=== PATIENT | female | born 1985 | race African-American/Black ===

== ENCOUNTER 2018-09-20 19:31 | Emergency (ER) | payer BC ==
[2018-09-20] MEDS ORDERED: IBUPROFEN 400 MG TAB ONE (19:59)
[2018-09-20] MEDS ORDERED: IBUPROFEN 200 MG TAB PO ONE (20:00)
[2018-09-20] MEDS ORDERED: ONDANSETRON 4 MG (ODT) TAB ONE (20:09)
--- NOTE | 2018-09-20 20:29 | ER ---
Nurse's Notes [facility] Name: Taina Macias Age: 33 yrs Sex: Female : 1985 Arrival Date: 09/20/2018 Time: 19:36 Bed 11 Private MD: Diagnosis: Migraine without aura, not intractable, without status migrainosus Presentation: 09/20 19:36 Presenting complaint: Patient states: headache since Thursday after dental work on ak1 Thursday. pt c/o pain at temples. pt had tylenol at 1030. Transition of care: patient was not received from another setting of care. Onset of symptoms was September 18, 2018. Risk Assessment: Do you want to hurt yourself or someone else? Patient reports no desire to harm self or others. Initial Sepsis Screen: Does the patient meet any 2 criteria? No. Patient's initial sepsis screen is negative. Does the patient have a suspected source of infection? No. Patient's initial sepsis screen is negative. Care prior to arrival: None. 19:36 Method Of Arrival: Ambulatory ak 19:36 Acuity: AARON 4 ak1 Triage Assessment: 19:38 General: Appears in no apparent distress. Behavior is calm, cooperative. 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 - Social history:: Smoking status: unknown. - Ebola Screening: : No symptoms or risks identified at this time. Screenin:47 Abuse screen: Denies threats or abuse. Denies injuries from another. Nutritional aj screening: No deficits noted. Tuberculosis screening: No symptoms or risk factors identified. Fall Risk None identified. Assessment: 19:47 General: Appears in no apparent distress. comfortable, Behavior is calm, cooperative, aj appropriate for age. Pain: Complains of pain in face and scalp. Neuro: Level of Consciousness is awake, alert, obeys commands, Oriented to person, place, time, situation, Appropriate for age. Neuro: Reports headache in entire. Respiratory: Airway is patent Respiratory effort is even, unlabored, Respiratory pattern is regular, symmetrical. Derm: Skin is intact, is healthy with good turgor, Skin is pink, warm \T\ dry. normal. 20:25 Reassessment: Patient appears in no apparent distress at this time. No changes from aj previously documented assessment. Patient and/or family updated on plan of care and expected duration. Pain level reassessed. Patient is alert, oriented x 3, equal unlabored respirations, skin warm/dry/pink. Patient states feeling better. Patient states symptoms have improved. Vital Signs: 19:38 BP 124 / 79; Pulse 78; Resp 16; Temp 99.1; Pulse Ox 100% on R/A; Weight 97.52 kg (R); ak1 Height 5 ft. 5 in. (165.10 cm) (R); Pain 8/10; 19:38 Body Mass Index 35.78 (97.52 kg, 165.10 cm) ak1 [place] Coma Score: 20:30 Eye Response: spontaneous(4). Verbal Response: oriented(5). Motor Response: obeys tw4 commands(6). Total: 15. ED Course: 19:36 Patient arrived in ED. ak1 19:38 Triage completed. ak1 19:38 Arm band placed on Patient placed in an exam room, on a stretcher, Patient notified of ak1 wait time. 19:41 Aliyah Hernadez, RN is Primary Nurse. aj 19:44 Rudi Tuttle MD is Attending Physician. tw4 19:47 Patient has correct armband on for positive identification. aj 20:33 No provider procedures requiring assistance completed. Patient did not have IV access aj during this emergency room visit. Administered Medications: 19:51 Drug: Ibuprofen 600 mg Route: PO; aj 20:25 Follow up: Response: Pain is decreased aj 19:59 Drug: Zofran 4 mg Route: PO; aj 20:25 Follow up: Response: Nausea is decreased aj Outcome: 20:28 Discharge ordered by . tw4 20:33 Discharged to home ambulatory, with family. aj 20:33 Condition: good 20:33 Discharge instructions given to patient, family, Instructed on discharge instructions, follow up and referral plans. medication usage, Demonstrated understanding of instructions, follow-up care, medications, Prescriptions given X 2. 20:33 Patient left the ED. aj Signatures: Aliyah Hernadez, RN RN Bonnie Umana RN RN ak1 Rudi Tuttle, MD SKAGGS tw4
--- NOTE | 2018-09-20 20:29 | EDPHYS ---
Physician Documentation [facility] Name: Taina Macias Age: 33 yrs Sex: Female : 1985 Arrival Date: 09/20/2018 Time: 19:36 Bed 11 Private MD: ED Physician Rudi Tuttle HPI: 09/20 20:30 This 33 yrs old Black Female presents to ER via Ambulatory with complaints of Headache. tw4 20:30 The patient complains of pain to the forehead. The patient describes the headache as a tw4 pressure. Onset: The symptoms/episode began/occurred 3 day(s) ago. Associated signs and symptoms: The patient has no apparent associated signs or symptoms. Severity of symptoms: At its worst the pain was mild, in the emergency department the pain is unchanged. Headache History: Denies prior headaches. The symptoms are alleviated by nothing. the symptoms are aggravated by nothing. The patient has not experienced similar symptoms in the past. 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 - Social history:: Smoking status: unknown. - Ebola Screening: : No symptoms or risks identified at this time. ROS: 20:30 Constitutional: Negative for fever, chills, and weight loss, Cardiovascular: Negative tw4 for chest pain, palpitations, and edema, Respiratory: Negative for shortness of breath, cough, wheezing, and pleuritic chest pain, Abdomen/GI: Negative for abdominal pain, nausea, vomiting, diarrhea, and constipation, Back: Negative for injury and pain, MS/Extremity: Negative for injury and deformity. 20:30 Neuro: Positive for headache, Negative for altered mental status, dizziness, gait disturbance, numbness, seizure activity, speech changes, syncope, near syncope, tingling, tinnitus, tremor, visual changes. Exam: 20:30 Constitutional: This is a well developed, well nourished patient who is awake, alert, tw4 and in no acute distress. Head/Face: Normocephalic, atraumatic. Chest/axilla: Normal chest wall appearance and motion. Nontender with no deformity. No lesions are appreciated. Cardiovascular: Regular rate and rhythm with a normal S1 and S2. No gallops, murmurs, or rubs. Normal PMI, no JVD. No pulse deficits. Respiratory: Lungs have equal breath sounds bilaterally, clear to auscultation and percussion. No rales, rhonchi or wheezes noted. No increased work of breathing, no retractions or nasal flaring. Abdomen/GI: Soft, non-tender, with normal bowel sounds. No distension or tympany. No guarding or rebound. No evidence of tenderness throughout. Skin: Warm, dry with normal turgor. Normal color with no rashes, no lesions, and no evidence of cellulitis. MS/ Extremity: Pulses equal, no cyanosis. Neurovascular intact. Full, normal range of motion. Neuro: Awake and alert, GCS 15, oriented to person, place, time, and situation. Cranial nerves II-XII grossly intact. Motor strength 5/5 in all extremities. Sensory grossly intact. Cerebellar exam normal. Normal gait. Vital Signs: 19:38 BP 124 / 79; Pulse 78; Resp 16; Temp 99.1; Pulse Ox 100% on R/A; Weight 97.52 kg (R); ak1 Height 5 ft. 5 in. (165.10 cm) (R); Pain 8/10; 19:38 Body Mass Index 35.78 (97.52 kg, 165.10 cm) ak1 [place] Coma Score: 20:30 Eye Response: spontaneous(4). Verbal Response: oriented(5). Motor Response: obeys tw4 commands(6). Total: 15. MDM: 19:44 Patient medically screened. tw4 20:30 Data reviewed: vital signs, nurses notes. Counseling: I had a detailed discussion with tw4 the patient and/or guardian regarding: the historical points, exam findings, and any diagnostic results supporting the discharge/admit diagnosis. Medication response: Zofran markedly relieved the patient's nausea. Response to treatment: the patient's symptoms have markedly improved after treatment, and as a result, I will discharge patient. Special discussion: I discussed with the patient/guardian in detail that at this point there is no indication for admission to the hospital. It is understood, however, that if the symptoms persist or worsen the patient needs to return immediately for re-evaluation. Administered Medications: 19:51 Drug: Ibuprofen 600 mg Route: PO; aj 20:25 Follow up: Response: Pain is decreased aj 19:59 Drug: Zofran 4 mg Route: PO; aj 20:25 Follow up: Response: Nausea is decreased aj Disposition: 09/20/18 20:28 Discharged to Home. Impression: Migraine without aura, not intractable, without status migrainosus. - Condition is Stable. - Discharge Instructions: Migraine Headache, Migraine Headache, [id number]. - Prescriptions for Fioricet 50- 325-40 mg Oral tablet - take 1 tablet by ORAL route every 4 hours as needed not to exceed 6 tablets per 24hrs; 20 tablet. Zofran 4 mg Oral Tablet - take 1 tablet by ORAL route every 12 hours As needed; 6 tablet. - Work release form, Medication Reconciliation Form, Thank You Letter, Antibiotic Education, Prescription Opioid Use form. - Follow up: Private Physician; When: Upon discharge from the Emergency Department; Reason: If symptoms return, Recheck today's complaints, Continuance of care. - Problem is new. - Symptoms have improved. Signatures: Aliyah Hernadez, RN RN Bonnie Umana RN RN ak1 Rudi Tuttle MD MD tw4 Corrections: (The following items were deleted from the chart) 20:33 20:28 09/20/2018 20:28 Discharged to Home. Impression: Migraine without aura, not aj intractable, without status migrainosus. Condition is Stable. Forms are Medication Reconciliation Form, Thank You Letter, Antibiotic Education, Prescription Opioid Use. Follow up: Private Physician; When: Upon discharge from the Emergency Department; Reason: If symptoms return, Recheck today's complaints, Continuance of care. Problem is new. Symptoms have improved. tw4
[2018-09-21 02:13] VITALS: BP 124/79; TEMP 99.1; O2SAT 100
== END 2018-09-20 20:33 | disposition home or self-care (01) ==
LOC: ER 19:31
DX: G43.009 Migraine without aura, not intractable, without status migrainosus (principal)
CPT/HCPCS: 99283

== ENCOUNTER 2019-01-01 09:06 | Emergency (ER) | payer BC ==
--- OUTSIDE RECORDS SUMMARY | 2019-01-01 09:09 | XMS REPORT | Clinical Summary ---
:1985 Author Organization [facility] Address [address] [place] [address] Care Team Providers Name Role Phone Asked, No Pcp Primary Care Provider Unavailable Allergies No Known Allergies Medications Medication Sig Dispensed Refills Start Date End Date Status medroxyPROGESTERone 150 INJECT 1 0 09/07/2018 Active mg/mL syringe MILLILITER (150 MG) BY INTRAMUSCULAR ROUTE EVERY 3 MONTHS diclofenac (VOLTAREN) 50 Take 1 tab as 90 tablet 0 10/15/2018 Active MG EC tablet needed for severe migraine. December repeat x 1 amitriptyline (ELAVIL) Take 1 tablet (10 30 tablet 3 10/15/2018 10/15/19 Active 10 MG tablet mg total) by mouth 20 nightly. Active Problems No known active problems Encounters Date Type Specialty Care Team Description 10/18/2018 Orders Only Neurology Rob Carl MD 10/15/2018 Office Visit Neurology Rob Carl MD Neck pain (Primary Dx); Acute nonintractable headache, unspecified headache type; Tension headache 10/15/2018 Orders Only Neurology Rob Carl MD after 12/31/2017 Family History Medical History Relation Name Comments Hypertension Father Breast cancer Maternal Grandmother Diabetes Mother Heart attack Mother Hypertension Mother Migraines Mother Colon cancer Paternal Grandmother Relation Name Status Comments Father Maternal Grandmother Mother Paternal Grandmother Social History Tobacco Use Types Packs/Day Years Used Date Never Smoker Smokeless Tobacco: Never Used Alcohol Use Drinks/Week oz/Week Comments Yes Sex Assigned at Date Recorded Not on file Job Start Date Occupation Industry Not on file Not on file Not on file Travel History Travel Start Travel End No recent travel history available. Last Filed Vital Signs Vital Sign Reading Time Taken Blood Pressure 110/70 10/15/2018 11:30 AM LOKIE ENGINEER Pulse 68 10/15/2018 11:30 AM LOKIE ENGINEER Temperature - - Respiratory Rate 14 10/15/2018 11:30 AM LOKIE ENGINEER Oxygen Saturation - - Inhaled Oxygen Concentration - - Weight 97.5 kg (215 lb) 10/15/2018 11:30 AM LOKIE ENGINEER Height - - Body Mass Index - - Plan of Treatment Date Type Specialty Care Team Description 01/12/2019 [place] [id number] [address] Health Maintenance Due Date Last Done Comments CERVICAL CANCER SCREENING 2006 INFLUENZA VACCINE 03/24/2019 Procedures Procedure Name Priority Date/Time Associated Comments Diagnosis RPR SCREEN Routine 10/18/2018 3:01 Results for this PM LOKIE ENGINEER procedure are in the results section. VITAMIN B12 LEVEL Routine 10/18/2018 3:01 Results for this PM LOKIE ENGINEER procedure are in the results section. THYROID STIMULATING Routine 10/18/2018 3:01 Results for this HORMONE PM LOKIE ENGINEER procedure are in the results section. FOLATE LEVEL Routine 10/18/2018 3:01 Results for this PM LOKIE ENGINEER procedure are in the results section. DNA AB SCREEN Routine 10/18/2018 3:01 Results for this PM LOKIE ENGINEER procedure are in the results section. TAVARES SCREEN W IFA W Routine 10/18/2018 3:01 Results for this REFLEX TO TITER PM LOKIE ENGINEER procedure are in the results section. SEDIMENTATION RATE Routine 10/18/2018 3:01 Results for this PM LOKIE ENGINEER procedure are in the results section. VITAMIN B12 LEVEL Routine 10/15/2018 12:33 Results for this PM LOKIE ENGINEER procedure are in the results section. FOLATE LEVEL Routine 10/15/2018 12:33 Results for this PM LOKIE ENGINEER procedure are in the results section. after 12/31/2017 Results TAVARES SCREEN W IFA W REFLEX TO TITER (10/18/2018 3:01 PM LOKIE ENGINEER) TAVARES screen NEGATIVE NEGATIVE [facility] Comment: TAVARES IFA is a first line screen for detecting the presence of up to approximately 150 autoantibodies in various autoimmune diseases. A negative TAVARES IFA result suggests TAVARES-associated autoimmune diseases are not present at this time. Visit Physician FAQs for interpretation of all antibodies in the [place], prevalence, and association with diseases at http://education.[employer].the Shelf/ faq/YOG755 Narrative Performed At FASTING: UNKNOWN [facility] Resulting Agency Comment Performing Organization Information: Site ID: [id number] Name: [facility] Address: [address] [place] [phone] Director: Dr. Ramses Perez Performing Organization Address [facility] Cent[facility] Phone Number [facility] [address] DNA Ab screen (10/18/2018 3:01 PM LOKIE ENGINEER) DNA ds antibody <1 IU/mL [facility] Comment: IU/mL Interpretation < or=4Negative 5-9 Indeterminate > or=10 Positive Narrative Performed At FASTING: UNKNOWN [facility] Comment Performing Organization Information: Site ID: [id number] Name: [facility] Address: [address] [place] [phone] Director: Dr. Ramses Perez Performing Organization Address [facility] Phone Number [facility] [address] RPR screen (10/18/2018 3:01 PM LOKIE ENGINEER) RPR (monitor) w/refl NON-REACTIVE NON-REACTIVE [facility] [place] titer Comment: NO COLLECTION DATE RECEIVED. WE HAVE USED THE DATE THE SPECIMEN WAS RECEIVED BY THIS LABORATORY THE COLLECTION DATE. IF THIS IS INCORRECT, PLEASE CONTACT CLIENT SERVICES. PHONE NUMBER: [phone] Narrative Performed At FASTING: UNKNOWN [facility]ing [facility] Comment Performing Organization Information: Site ID: [id number] Name: [facility] Address: [address] [place] [phone] Director: Jen Gil Performing Organization Address [facility] Phone Number [facility] [address] [address] Sedimentation rate (10/18/2018 3:01 PM LOKIE ENGINEER) Sedimentation rate 2 < OR=20 mm/h [facility] [place] Narrative Performed At FASTING: UNKNOWN [facility] Comment Performing Organization Information: Site ID: [id number] Name: [facility] Address: [address] [place] [phone] Director: Jen Gil Performing Organization Address [facility] Phone Number [facility] [address] [phone] Thyroid stimulating hormone (10/18/2018 3:01 PM LOKIE ENGINEER) TSH 1.26 mIU/L [facility] [place] Comment: Reference Range > or=20 Years0.40-4.50 Ranges First trimester0.26-2.66 Second trimester 0.55-2.73 Third trimester0.43-2.91 Narrative Performed At FASTING: UNKNOWN [facility] Resulting [facility] Comment Performing Organization Information: Site ID: RGA Name: [facility] Address: [address] [place] [phone] Director: Jen Gil Performing Organization Address City/[facility] Centercode Phone Number [facility] [address] [address] Folate level (10/18/2018 3:01 PM LOKIE ENGINEER)Only the most recent of2 resultswithin the time period is included. Folate >24.0 ng/mL [facility] [place] Comment: Reference Range Low: <3.4 Borderline:3.4- 5.4 Normal:> 5.4 Narrative Performed At FASTING: UNKNOWN [facility] Comment Performing Organization Information: Site ID: [id number] Name: [facility] Address: [address] [place] [phone] Director: Jen Gil Performing Organization Address [facility] [place] [address] Vitamin B12 level (10/18/2018 3:01 PM LOKIE ENGINEER)Only the most recent of2 resultswithin the time period is included. Vitamin B12 537 200 - 1,100 pg/mL [facility] [place] Narrative Performed At FASTING: UNKNOWN [facility] Comment Performing Organization Information: Site ID: [id number] Name: [facility] Address: [address] [place] [phone] Director: Jen Gil Performing Organization Address City/State/[facility] Cent[facility]ode Phone Number [facility] [address] [phone] after 12/31/2017 Insurance Payer Benefit Plan / Group Subscriber ID Type Phone Address BCBS BCBS CHOICE PPO/FEDERAL EMPL PPO xxxxxxxxxxxx PPO Advance Directives Patient has advance care planning documents on file. For more information, please contact:Julian Butler[address] [place] [address]
[2019-01-01] MEDS ORDERED: KETOROLAC 30 MG/ML INJ ONE (09:41)
[2019-01-01] MEDS ORDERED: CYCLOBENZAPRINE 10 MG TAB ONE (09:41)
[2019-01-01] MEDS ORDERED: METHYLPREDNISOLONE 125 MG INJ ONE (09:41)
--- NOTE | 2019-01-01 11:24 | ER ---
Nurse's Notes [facility] Name: Taina Macias Age: 33 yrs Sex: Female : 1985 Arrival Date: 01/01/2019 Time: 09:08 Bed 13 Private MD: Unknown, Unknown Diagnosis: Muscle spasm of back Presentation: 01/01 09:15 Presenting complaint: Patient states: Since Thursday, I thought it was a crick in my tw2 neck, but it has been catching muscles spasms, I took Ibuprofen and Advil and nothing has helped, and every position hurts. Transition of care: patient was not received from another setting of care. Onset of symptoms was January 01, 2019. Risk Assessment: Do you want to hurt yourself or someone else? Patient reports no desire to harm self or others. Initial Sepsis Screen: Does the patient meet any 2 criteria? No. Patient's initial sepsis screen is negative. Does the patient have a suspected source of infection? No. Patient's initial sepsis screen is negative. Care prior to arrival: None. 09:15 Method Of Arrival: Ambulatory tw2 09:15 Acuity: AARON 4 tw2 Triage Assessment: 09:17 General: Appears in no apparent distress. well groomed, Behavior is calm, cooperative, tw2 appropriate for age. Pain: Complains of pain in Right shoulder, upper right back. 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 - Social history:: Smoking status: Patient/guardian denies using tobacco. - Ebola Screening: : Patient denies travel to an Ebola-affected area in the 21 days before illness onset. Screenin:20 Abuse screen: Denies threats or abuse. Nutritional screening: No deficits noted. tw2 Tuberculosis screening: No symptoms or risk factors identified. Fall Risk None identified. Assessment: 09:20 General: Appears in no apparent distress. well groomed, Behavior is calm, cooperative, tw2 appropriate for age. Pain: Complains of pain in right shoulder. Neuro: Level of Consciousness is awake, alert, obeys commands, Oriented to person, place, time, situation. Cardiovascular: Patient's skin is warm and dry. Respiratory: Airway is patent Respiratory effort is even, unlabored, Respiratory pattern is regular, symmetrical, Breath sounds are clear bilaterally. GI: No signs and/or symptoms were reported involving the gastrointestinal system. : No signs and/or symptoms were reported regarding the genitourinary system. EENT: No signs and/or symptoms were reported regarding the EENT system. Derm: No signs and/or symptoms reported regarding the dermatologic system. Musculoskeletal: Circulation, motion, and sensation intact. Reports pain in right shoulder, upper right back. 09:22 Reassessment: provider at bedside at this time. tw2 10:37 Reassessment: Patient appears in no apparent distress at this time. Patient and/or tw2 family updated on plan of care and expected duration. Pain level reassessed. Patient is alert, oriented x 3, equal unlabored respirations, skin warm/dry/pink. 11:38 Reassessment: Patient appears in no apparent distress at this time. Patient and/or tw2 family updated on plan of care and expected duration. Pain level reassessed. Patient is alert, oriented x 3, equal unlabored respirations, skin warm/dry/pink. Patient states feeling better. Vital Signs: 09:17 BP 147 / 73; Pulse 91; Resp 18; Temp 98(TE); Pulse Ox 99% on R/A; Weight 96.16 kg (R); tw2 Height 5 ft. 6 in. (167.64 cm) (R); Pain 8/10; 10:38 BP 118 / 70; Pulse 86; Resp 18; Pulse Ox 100% ; Pain 7/10; tw2 10:38 Pain 7/10; tw2 11:39 BP 115 / 53; Pulse 82; Resp 17; Pulse Ox 99% on R/A; Pain 7/10; tw2 09:17 Body Mass Index 34.22 (96.16 kg, 167.64 cm) tw2 ED Course: 09:08 Patient arrived in ED. ag5 09:09 Unknown, Unknown is Private Physician. ag5 09:09 [facility]agandeep Krause [facility] pm1 09:09 Lazaro Rosario MD is Attending Physician. pm1 09:09 Bed in low position. Call light in reach. Pulse ox on. NIBP on. tw2 09:15 Jordana Naylor, RN is Primary Nurse. tw2 09:17 Triage completed. tw2 09:17 Arm band placed on. tw2 11:39 No provider procedures requiring assistance completed. Patient did not have IV access tw2 during this emergency room visit. Administered Medications: 09:33 Drug: Flexeril 10 mg Route: PO; tw2 10:37 Follow up: Response: No adverse reaction; No adverse reaction, pt reports no muscle tw2 spasms 09:35 Drug: TORadol 60 mg Route: IM; Site: right gluteus; tw2 10:38 Follow up: Pain /10 Adult; Response: No adverse reaction; Pain is decreased tw2 09:36 Drug: SOLU-Medrol 125 mg Route: IM; Site: left gluteus; tw2 10:37 Follow up: Response: No adverse reaction tw2 Outcome: 11:23 Discharge ordered by . pm1 11:39 Discharged to home ambulatory. tw2 11:39 Condition: stable 11:39 Discharge instructions given to patient, Instructed on discharge instructions, follow up and referral plans. no drinking with medication, no driving heavy equipment, medication usage, Demonstrated understanding of instructions, follow-up care, medications, Prescriptions given X 3. 11:40 Patient left the ED. tw2 Signatures: Gagandeep Krause, SUPERVISOR CEREAL SUPERVISOR CEREAL pm1 Jordana Naylor, RN RN tw2 Oral Pérez ag5
--- NOTE | 2019-01-01 11:24 | EDPHYS ---
Physician Documentation [facility] Name: Taina Macias Age: 33 yrs Sex: Female : 1985 Arrival Date: 01/01/2019 Time: 09:08 Bed 13 Private MD: Unknown, Unknown ED Physician Lazaro Rosario HPI: 01/01 09:54 This 33 yrs old Black Female presents to ER via Ambulatory with complaints of Right pm1 neck and back pain. 09:54 The patient or guardian complains of pain, that is acute. Posterior right neck and back.pm1 09:54 Context: The problem was sustained at home, resulted from an unknown reason, possibly pm1 sleeping wrong position, The patient reports no decreased range of motion. The patient reports no obvious deformity. Onset: The symptoms/episode began/occurred 3 day(s) ago. Modifying factors: the symptoms are alleviated by remaining still, The symptoms are aggravated by movement. Associated signs and symptoms: Pertinent negatives: chest pain, Numbness in right arm, left arm, right leg and left leg shortness of breath, tingling, Weakness in right arm, left arm, right leg and left leg. Severity of symptoms: in the emergency department the symptoms are actually worse. Treatment prior to arrival includes: over the counter medications, NSAIDS. The patient has not experienced similar symptoms in the past. The patient has not recently seen a physician. 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 - Social history:: Smoking status: Patient/guardian denies using tobacco. - Ebola Screening: : Patient denies travel to an Ebola-affected area in the 21 days before illness onset. ROS: 09:54 Constitutional: Negative for fever, chills, and weight loss, Eyes: Negative for injury, pm1 pain, redness, and discharge, ENT: Negative for injury, pain, and discharge. 09:54 Cardiovascular: Negative for chest pain, palpitations, and edema, Respiratory: Negative for shortness of breath, cough, wheezing, and pleuritic chest pain, Abdomen/GI: Negative for abdominal pain, nausea, vomiting, diarrhea, and constipation. 09:54 : Negative for injury, bleeding, discharge, and swelling, MS/Extremity: Negative for injury and deformity, Skin: Negative for injury, rash, and discoloration, Neuro: Negative for headache, weakness, numbness, tingling, and seizure. 09:54 Neck: Positive for pain with movement, tenderness, of the right trapezius. 09:54 Back: Positive for pain with movement, of the mid left back area along trapezius. Exam: 09:54 Constitutional: This is a well developed, well nourished patient who is awake, alert, pm1 and in no acute distress. Head/Face: Normocephalic, atraumatic. Eyes: Pupils equal round and reactive to light, extra-ocular motions intact. Lids and lashes normal. Conjunctiva and sclera are non-icteric and not injected. Cornea within normal limits. Periorbital areas with no swelling, redness, or edema. ENT: Nares patent. No nasal discharge, no septal abnormalities noted. Tympanic membranes are normal and external auditory canals are clear. Oropharynx with no redness, swelling, or masses, exudates, or evidence of obstruction, uvula midline. Mucous membranes moist. 09:54 Chest/axilla: Normal chest wall appearance and motion. Nontender with no deformity. No lesions are appreciated. Cardiovascular: Regular rate and rhythm with a normal S1 and S2. No gallops, murmurs, or rubs. Normal PMI, no JVD. No pulse deficits. Respiratory: Lungs have equal breath sounds bilaterally, clear to auscultation and percussion. No rales, rhonchi or wheezes noted. No increased work of breathing, no retractions or nasal flaring. Abdomen/GI: Soft, non-tender, with normal bowel sounds. No distension or tympany. No guarding or rebound. No evidence of tenderness throughout. 09:54 Skin: Warm, dry with normal turgor. Normal color with no rashes, no lesions, and no evidence of cellulitis. MS/ Extremity: Pulses equal, no cyanosis. Neurovascular intact. Full, normal range of motion. 09:54 Neck: C-spine: vertebral tenderness, is not appreciated, Tenderness of right trapezius from right shoulder to right occipital area. 09:54 Back: normal spinal alignment noted, muscle spasm, is appreciated in the right trapezius. 09:54 Neuro: Orientation: is normal, Motor: is normal, moves all fours, Sensation: is normal, no obvious gross deficits, Gait: is steady, at a normal pace, without difficulty. Vital Signs: 09:17 BP 147 / 73; Pulse 91; Resp 18; Temp 98(TE); Pulse Ox 99% on R/A; Weight 96.16 kg (R); tw2 Height 5 ft. 6 in. (167.64 cm) (R); Pain 8/10; 10:38 BP 118 / 70; Pulse 86; Resp 18; Pulse Ox 100% ; Pain 7/10; tw2 10:38 Pain 7/10; tw2 11:39 BP 115 / 53; Pulse 82; Resp 17; Pulse Ox 99% on R/A; Pain 7/10; tw2 09:17 Body Mass Index 34.22 (96.16 kg, 167.64 cm) tw2 MDM: 09:19 Patient medically screened. pm1 11:22 Data reviewed: vital signs. Data interpreted: Pulse oximetry: on room air is 100 %. pm1 Interpretation: normal. Counseling: I had a detailed discussion with the patient and/or guardian regarding: the historical points, exam findings, and any diagnostic results supporting the discharge/admit diagnosis, the need for outpatient follow up, to return to the emergency department if symptoms worsen or persist or if there are any questions or concerns that arise at home. Administered Medications: 09:33 Drug: Flexeril 10 mg Route: PO; tw2 10:37 Follow up: Response: No adverse reaction; No adverse reaction, pt reports no muscle tw2 spasms 09:35 Drug: TORadol 60 mg Route: IM; Site: right gluteus; tw2 10:38 Follow up: Pain 7/10 Adult; Response: No adverse reaction; Pain is decreased tw2 09:36 Drug: SOLU-Medrol 125 mg Route: IM; Site: left gluteus; tw2 10:37 Follow up: Response: No adverse reaction tw2 Disposition: 11:50 Co-signature as Attending Physician, Lazaro Rosario MD. rn Disposition: 01/01/19 11:23 Discharged to Home. Impression: Muscle spasm of back. - Condition is Stable. - Discharge Instructions: Back Pain, Adult, Muscle Cramps and Spasms, Back Injury Prevention, [id number]. - Prescriptions for Tylenol- Codeine #3 300-30 mg Oral Tablet - take 2 tablets by ORAL route every 6 hours As needed; 20 tablet. Cyclobenzaprine 10 mg Oral Tablet - take 1 tablet by ORAL route every 8 hours As needed; 30 tablet. Medrol (Eliseo) 4 mg Oral Tablets, Dose Pack - take 1 tablet by ORAL route as directed - follow package instructions; 1 packet. - Medication Reconciliation Form, Thank You Letter, Antibiotic Education, Prescription Opioid Use, Work release form form. - Follow up: Emergency Department; When: As needed; Reason: Worsening of condition. Follow up: Private Physician; When: 2 - 3 days; Reason: Recheck today's complaints, Continuance of care, Re-evaluation by your physician. - Problem is new. - Symptoms have improved. Signatures: Lazaro Rosario MD MD rn Marinas, Patrick, NP EXECUTIVE DIRECTOR OF NURSING pm1 Jordana Naylor RN RN tw2 Corrections: (The following items were deleted from the chart) 11:40 11:23 01/01/2019 11:23 Discharged to Home. Impression: Muscle spasm of back. Condition tw2 is Stable. Forms are Work release form, Medication Reconciliation Form, Thank You Letter, Antibiotic Education, Prescription Opioid Use. Follow up: Emergency Department; When: As needed; Reason: Worsening of condition. Follow up: Private Physician; When: 2 - 3 days; Reason: Recheck today's complaints, Continuance of care, Re-evaluation by your physician. Problem is new. Symptoms have improved. pm1
[2019-01-01 12:24] VITALS: TEMP 98
[2019-01-01 12:26] VITALS: BP 115/53; O2SAT 99
== END 2019-01-01 11:40 | disposition home or self-care (01) ==
LOC: ER 09:06
DX: M62.830 Muscle spasm of back (principal)
CPT/HCPCS: 96372; 99283; J2930

== ENCOUNTER 2019-08-03 12:10 | Emergency (ER) | payer BC ==
--- NOTE | 2019-08-03 13:43 | RAD REPORT ---
EXAM DESCRIPTION: USExtremity Venous Uni Ltd08/03/2019 1:24 pm CLINICAL HISTORY: left leg pain and swelling. COMPARISON: None. FINDINGS: Left common femoral, superficial femoral, popliteal and posterior tibial veins are compre ssible and demonstrate augmentation. Doppler demonstrates good flow. Fluid collection within the lateral left knee measures 6 x 1 x 5 centimeters. Fluid collection within the medial aspect of the left knee measures 6 x 5 x 2 centimeters IMPRESSION: No evidence of deep venous thrombosis involving the left lower extremity. Fluid collections within the left knee presumably representing atypical Jean-Baptiste's cysts. Follow-up ultr asound in 1 month recommended for re-evaluation
--- NOTE | 2019-08-03 14:09 | RAD REPORT ---
EXAM DESCRIPTION: RAD - Knee Left 3 View - 08/03/2019 1:41 pm CLINICAL HISTORY: Left knee pain FINDINGS: No fracture or dislocation is seen. Minimal medial joint space narrowing.
--- NOTE | 2019-08-03 14:28 | EDPHYS ---
Physician Documentation [facility] Name: Taina Macais Age: 34 yrs Sex: Female : 1985 Arrival Date: 08/03/2019 Time: 12:14 Bed 26 Private MD: ED Physician Benjamín Alva HPI: 08/03 14:21 This 34 yrs old Black Female presents to ER via Ambulatory with complaints of Leg kb Swelling. 14:21 The patient presents with pain, swelling, tenderness. The complaints affect the left kb leg. Context: The problem was sustained at home, resulted from an unknown cause, the patient can fully bear weight, the patient is able to ambulate. Onset: The symptoms/episode began/occurred 1 week(s) ago. Modifying factors: The symptoms are alleviated by nothing. the symptoms are aggravated by weight bearing. Associated signs and symptoms: Pertinent positives: calf tenderness, swelling. Treatment prior to arrival includes: no previous treatment. Severity of symptoms: At their worst the symptoms were moderate, in the emergency department the symptoms have improved, mildly. The patient has not experienced similar symptoms in the past. The patient has not recently seen a physician. Pt reports left knee tightness and pain that started a week ago. Noticed swelling to leg on Thursday. 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 - Social history:: Smoking status: Patient/guardian denies using tobacco. - Ebola Screening: : No symptoms or risks identified at this time. ROS: 14:21 Constitutional: Negative for fever, chills, and weight loss, ENT: Negative for injury, kb pain, and discharge, Neck: Negative for injury, pain, and swelling, Cardiovascular: Negative for chest pain, palpitations, and edema, Respiratory: Negative for shortness of breath, cough, wheezing, and pleuritic chest pain, Abdomen/GI: Negative for abdominal pain, nausea, vomiting, diarrhea, and constipation, Back: Negative for injury and pain, Skin: Negative for injury, rash, and discoloration, Neuro: Negative for headache, weakness, numbness, tingling, and seizure. 14:21 MS/extremity: Positive for pain, swelling, tenderness. Exam: 14:20 Constitutional: This is a well developed, well nourished patient who is awake, alert, kb and in no acute distress. Head/Face: Normocephalic, atraumatic. ENT: Nares patent. No nasal discharge, no septal abnormalities noted. Tympanic membranes are normal and external auditory canals are clear. Oropharynx with no redness, swelling, or masses, exudates, or evidence of obstruction, uvula midline. Mucous membranes moist. Neck: Trachea midline, no thyromegaly or masses palpated, and no cervical lymphadenopathy. Supple, full range of motion without nuchal rigidity, or vertebral point tenderness. No Meningismus. Chest/axilla: Normal chest wall appearance and motion. Nontender with no deformity. No lesions are appreciated. Cardiovascular: Regular rate and rhythm with a normal S1 and S2. No gallops, murmurs, or rubs. Normal PMI, no JVD. No pulse deficits. Respiratory: Lungs have equal breath sounds bilaterally, clear to auscultation and percussion. No rales, rhonchi or wheezes noted. No increased work of breathing, no retractions or nasal flaring. Abdomen/GI: Soft, non-tender, with normal bowel sounds. No distension or tympany. No guarding or rebound. No evidence of tenderness throughout. Skin: Warm, dry with normal turgor. Normal color with no rashes, no lesions, and no evidence of cellulitis. Neuro: Awake and alert, GCS 15, oriented to person, place, time, and situation. Cranial nerves II-XII grossly intact. Motor strength 5/5 in all extremities. Sensory grossly intact. Cerebellar exam normal. Normal gait. 14:20 Musculoskeletal/extremity: Extremities: grossly normal except: noted in the left leg: pain, swelling, tenderness, ROM: intact in all extremities, Circulation is intact in all extremities. Sensation intact. Weight bearing: able to fully bear weight. Vital Signs: 12:33 BP 147 / 76; Pulse 67; Resp 16; Temp 97.5; Pulse Ox 100% on R/A; Weight 94.35 kg; hb Height 5 ft. 6 in. (167.64 cm); Pain 6/10; 14:37 BP 135 / 78; Pulse 70; Resp 18; Temp 98.1; Pulse Ox 100% on R/A; mg2 12:33 Body Mass Index 33.57 (94.35 kg, 167.64 cm) hb MDM: 12:44 Patient medically screened. kb 14:20 Data reviewed: vital signs, nurses notes. Data interpreted: Pulse oximetry: on room air kb is 100 %. Interpretation: normal. 14:20 Counseling: I had a detailed discussion with the patient and/or guardian regarding: the kb historical points, exam findings, and any diagnostic results supporting the discharge/admit diagnosis, radiology results, the need for outpatient follow up, a orthopedic surgeon. 08/03 12:50 Order name: US Extremity Venous Unilateral Ltd; Complete Time: 13:50 kb 08/03 13:22 Order name: Knee Left 3 View XRAY; Complete Time: 14:12 kb 08/03 14:12 Order name: Knee Immobilizer; Complete Time: 14:27 kb Administered Medications: No medications were administered Disposition: 08/04 07:13 Co-signature as Attending Physician, Benjamín Alva MD I agree with the assessment and kdr plan of care. Disposition: 08/03/19 14:27 Discharged to Home. Impression: Pain in left knee. - Condition is Stable. - Discharge Instructions: Jean-Baptiste Cyst, Knee Pain, [id number]. - Prescriptions for Diclofenac Sodium 75 mg Oral Tablet, Delayed Release (E.C.) - take 1 tablet by ORAL route 2 times per day As needed; 30 tablet. - Medication Reconciliation Form, Thank You Letter, Antibiotic Education, Prescription Opioid Use form. - Follow up: Emergency Department; When: As needed; Reason: Worsening of condition. Follow up: Private Physician; When: 2 - 3 days; Reason: Recheck today's complaints, Continuance of care, Re-evaluation by your physician. Signatures: Dispatcher [employer] EDKatja Howell FNP-C FNP-Ckb Rittger, Kevin, MD MD [facility] Kirstin Mae RN RN Andrea Cortez RN RN mg2 Corrections: (The following items were deleted from the chart) 08/03 14:38 14:27 08/03/2019 14:27 Discharged to Home. Impression: Pain in left knee. Condition is mg2 Stable. Forms are Medication Reconciliation Form, Thank You Letter, Antibiotic Education, Prescription Opioid Use. Follow up: Emergency Department; When: As needed; Reason: Worsening of condition. Follow up: Private Physician; When: 2 - 3 days; Reason: Recheck today's complaints, Continuance of care, Re-evaluation by your physician. kb
--- NOTE | 2019-08-03 14:28 | ER ---
Nurse's Notes [facility] Name: Taina Macias Age: 34 yrs Sex: Female : 1985 Arrival Date: 08/03/2019 Time: 12:14 Bed 26 Private MD: Diagnosis: Pain in left knee Presentation: 08/03 12:33 Presenting complaint: Left knee pain and swelling x 10 days. Pain radiates to left hip hb and left lower leg. Denies injury. Transition of care: patient was not received from another setting of care. Onset of symptoms was July 24, 2019. Risk Assessment: Do you want to hurt yourself or someone else? Patient reports no desire to harm self or others. Care prior to arrival: None. 12:33 Method Of Arrival: Ambulatory hb 12:33 Acuity: AARON 3 hb 12:52 Initial Sepsis Screen: Does the patient meet any 2 criteria? No. Patient's initial mg2 sepsis screen is negative. Does the patient have a suspected source of infection? No. Patient's initial sepsis screen is negative. 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 - Social history:: Smoking status: Patient/guardian denies using tobacco. - Ebola Screening: : No symptoms or risks identified at this time. Screenin:51 Abuse screen: Denies threats or abuse. Denies injuries from another. Nutritional mg2 screening: No deficits noted. Tuberculosis screening: No symptoms or risk factors identified. Fall Risk None identified. Assessment: 12:49 General: Appears in no apparent distress. comfortable, Behavior is calm, cooperative. mg2 Pain: Complains of pain in left leg Pain radiates to left hip. Neuro: Level of Consciousness is awake, alert, obeys commands, Oriented to person, place, time, situation. Cardiovascular: Capillary refill < 3 seconds Patient's skin is warm and dry. Respiratory: Airway is patent Respiratory effort is even, unlabored, Respiratory pattern is regular, symmetrical. GI: No signs and/or symptoms were reported involving the gastrointestinal system. : No signs and/or symptoms were reported regarding the genitourinary system. EENT: No signs and/or symptoms were reported regarding the EENT system. Derm: Skin is intact, is healthy with good turgor, Skin is pink, warm \T\ dry. normal. Musculoskeletal: Circulation, motion, and sensation intact. Capillary refill < 3 seconds, Swelling present in left leg. 13:03 Reassessment: patient sent to ultrasound via wheelchair,. mg2 14:37 Reassessment: Patient appears in no apparent distress at this time. Patient is alert, mg2 oriented x 3, equal unlabored respirations, skin warm/dry/pink. Vital Signs: 12:33 BP 147 / 76; Pulse 67; Resp 16; Temp 97.5; Pulse Ox 100% on R/A; Weight 94.35 kg; hb Height 5 ft. 6 in. (167.64 cm); Pain 6/10; 14:37 BP 135 / 78; Pulse 70; Resp 18; Temp 98.1; Pulse Ox 100% on R/A; mg2 12:33 Body Mass Index 33.57 (94.35 kg, 167.64 cm) hb ED Course: 12:14 Patient arrived in ED. mr 12:33 Triage completed. hb 12:35 Arm band placed on. hb 12:43 Katja Keys FNP-C is PHCP. kb 12:43 Benjamín Alva MD is Attending Physician. kb 12:44 Andrea Cortez, JOSE ALEJANDRO is Primary Nurse. mg2 12:51 No provider procedures requiring assistance completed. Patient did not have IV access mg2 during this emergency room visit. 12:52 Patient has correct armband on for positive identification. Door closed. Warm blanket mg2 given. 13:24 US Extremity Venous Unilateral Ltd In Process Unspecified. EDMS 13:39 X-ray completed. Portable x-ray completed in exam room. Patient tolerated procedure mh1 well. 13:41 Knee Left 3 View XRAY In Process Unspecified. EDMS 14:27 Knee immobilizer applied on left knee. mg2 Administered Medications: No medications were administered Outcome: 14:27 Discharge ordered by . kb 14:38 Discharged to home ambulatory, with family. mg2 14:38 Condition: stable 14:38 Discharge instructions given to patient, family, Instructed on discharge instructions, follow up and referral plans. medication usage, Demonstrated understanding of instructions, follow-up care, medications, Prescriptions given X 1. 14:38 Patient left the ED. mg2 Signatures: Dispatcher [employer] EDMS Katja Keys, DANIEL MARS-Momo Anuradha Mireles Martha mh1 Kirstin Mae, JOSE ALEJANDRO RN Andrea Cortez RN RN mg2 Corrections: (The following items were deleted from the chart) 12:46 12:33 BP 147 / 76; Pulse 7bpm; Resp 16bpm; Pulse Ox 100% RA; Temp 97.5F; 94.35 kg; hb Height 5 ft. 6 in.; BMI: 33.5; Pain 6/10; hb
[2019-08-04 01:19] VITALS: O2SAT 100
[2019-08-04 01:21] VITALS: BP 135/78; TEMP 98.1
== END 2019-08-03 14:38 | disposition home or self-care (01) ==
LOC: ER 12:10
DX: M25.562 Pain in left knee (principal)
CPT/HCPCS: 93971; 99283

== ENCOUNTER 2020-09-26 21:29 | Emergency (ER) | payer BC, SELFPAY ==
--- OUTSIDE RECORDS SUMMARY | 2020-09-26 21:32 | XMS REPORT | Clinical Summary ---
:1985 Author Organization [facility] Address [address] [place] [address] Care Team Providers Name Role Phone Asked, No Pcp Primary Care Provider Unavailable Allergies No Known Active Allergies Medications Medication Sig Dispensed Refills Start End Date Status Date medroxyPROGESTERone 150 INJECT 1 0 Active mg/mL syringe MILLILITER (150 9 MG) BY INTRAMUSCULAR ROUTE EVERY 3 MONTHS diclofenac (VOLTAREN) 50 Take 1 tab as 90 tablet 0 Active MG EC tablet needed for severe 9 migraine. December repeat x 1 amitriptyline (ELAVIL) Take 1 tablet (10 30 tablet 3 10/15/19 10 MG tablet mg total) by mouth 9 20 nightly. Active Problems No known active problems Surgical History Surgery Date Site/Laterality Comments SECTION GASTRIC BYPASS gastric sleeve GALLBLADDER SURGERY PANNICULECTOMY Family History Medical History Relation Name Comments [...] Assigned at Date Recorded Not on file Last Filed Vital Signs Not on file Plan of Treatment Health Maintenance Due Date Last Done Comments COVID-19 VACCINE (1 of 2) 2001 CERVICAL CANCER SCREENING 2006 INFLUENZA VACCINE 03/24/2020 Results Not on fileafter 09/26/2019 Advance Directives For more information, please contact: [phone] Type Date Recorded Patient Bark Peeler Explanati on Advance Directives, Living Will and Medical Power of Motor Vehicle Dispatcher
[2020-09-26] MEDS ORDERED: NA CHLORIDE 0.9% 1,000 ML ONE (22:19)
[2020-09-26 22:29] LABS: Absolute Lymphocytes (CBC) 2.3 K/uL (0.7-4.9); Hematocrit 34.7 % (36.0-45.0); Lymphocytes % 35.2 % (15.3-44.8); MPV 7.5 fL (7.6-11.3); RBC Red Blood Cell Count 4.08 M/uL (3.86-4.86)
[2020-09-26 22:35] LABS: Albumin 4.2 g/dL (3.4-5.0); Bilirubin Direct 0.1 mg/dL (0-0.2); Bilirubin Total 0.4 mg/dL (0.2-1.0); Potassium 3.9 mmol/L (3.5-5.1); Protein, Total 8.2 g/dL (6.4-8.2)
[2020-09-26] MEDS ORDERED: FAMOTIDINE 20 MG/2 ML VIAL IV ONE (23:19)
[2020-09-26] MEDS ORDERED: MORPHINE 2 MG/ML SYR ONE (23:19)
[2020-09-26] MEDS ORDERED: ONDANSETRON 4 MG/2 ML VIAL ONE (23:19)
[2020-09-27 00:19] LABS: Urine Blood NEGATIVE (NEG); Urine Glucose NEGATIVE (NEG); Urine Protein NEGATIVE (NEG); Urine Specific Gravity 1.025 (1.005-1.030); Urine pH 7.5 (5.0-7.0)
--- NOTE | 2020-09-27 00:41 | ER ---
Nurse's Notes [facility] Name: Taina Macias Age: 35 yrs Sex: Female : 1985 Arrival Date: 09/26/2020 Time: 21:30 Bed 2 Private MD: Diagnosis: Abdominal tenderness-acute nonspecific enteritis;Nausea and vomiting Presentation: 09/26 21:36 Chief complaint: Patient states: Abd pain and swelling began tonight after taking MOM ll1 to help her poop. Constipated for 1 week. + nausea now. No fever. Coronavirus screen: Client denies travel out of the [place] in the last 14 days. At this time, the client does not indicate any symptoms associated with coronavirus-19. Ebola Screen: Patient denies travel to an Ebola-affected area in the 21 days before illness onset. Initial Sepsis Screen: Does the patient meet any 2 criteria? HR > 90 bpm. No. Patient's initial sepsis screen is negative. Does the patient have a suspected source of infection? Yes: Acute abdominal pain. Risk Assessment: Do you want to hurt yourself or someone else? Patient reports no desire to harm self or others. Onset of symptoms was September 21, 2020. 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 - Social history:: Smoking status: Patient denies any tobacco usage or history of. - Family history:: not pertinent. Screenin:00 Abuse screen: Denies threats or abuse. Denies injuries from another. rv 23:00 Nutritional screening: No deficits noted. Tuberculosis screening: No symptoms or risk rv factors identified. Fall Risk None identified. Assessment: 22:45 General: Appears uncomfortable, Behavior is calm, cooperative. rv 22:45 Pain: Complains of pain in abdomen. Neuro: Level of Consciousness is awake, alert, rv obeys commands, Oriented to person, place, time, situation. Cardiovascular: Patient's skin is warm and dry. Respiratory: Airway is patent Respiratory effort is even, unlabored. GI: Abdomen is round non-distended, Bowel sounds present X 4 quads. Abd is soft X 4 quads. Derm: Skin is intact. 09/27 00:00 Reassessment: Patient appears in no apparent distress at this time. Patient and/or wh family updated on plan of care and expected duration. Pain level reassessed. Patient is alert, oriented x 3, equal unlabored respirations, skin warm/dry/pink. 02:00 Reassessment: Patient appears in no apparent distress at this time. Patient and/or wh family updated on plan of care and expected duration. Pain level reassessed. Patient is alert, oriented x 3, equal unlabored respirations, skin warm/dry/pink. Vital Signs: 09/26 21:36 Pulse 101; Resp 18; Temp 98.0; Pulse Ox 100% on R/A; Weight 94.8 kg; Height 5 ft. 6 in. ll1 (167.64 cm); Pain 8/10; 21:47 BP 104 / 78; ll1 23:00 BP 103 / 71; Pulse 81; Resp 18; Pulse Ox 100% on R/A; rv 09/27 00:06 BP 116 / 60; Pulse 73; Resp 17; Pulse Ox 100% on R/A; rv 02:00 BP 110 / 68; Pulse 74; Resp 18; Pulse Ox 99% on R/A; wh 09/26 21:36 Body Mass Index 33.73 (94.80 kg, 167.64 cm) ll1 ED Course: 09/26 21:30 Patient arrived in ED. cl3 21:38 Triage completed. ll1 21:38 Arm band placed on Patient placed in an exam room, on a stretcher. ll1 21:50 John Murrieta RN is Primary Nurse. rv 21:58 Inserted saline lock: 20 gauge in right antecubital area, using aseptic technique. rv Blood collected. 22:25 Arvind Grijalva MD is Attending Physician. katja 23:12 Patient has correct armband on for positive identification. Pulse ox on. NIBP on. rv 09/27 00:19 CT Abd/Pelvis - IV Contrast Only In Process Unspecified. EDMS 00:40 Sunshine Mayes MD is Referral Physician. katja 02:13 No provider procedures requiring assistance completed. IV discontinued, intact, bleeding controlled, No redness/swelling at site. Administered Medications: 09/26 22:00 Drug: NS 0.9% 1000 ml Route: IV; Rate: 1 bolus; Site: right antecubital; 09/27 00:57 Follow up: Response: No adverse reaction; IV Status: Completed infusion 09/26 23:09 Drug: Pepcid 20 mg Route: IVP; Site: right antecubital; 09/27 00:57 Follow up: Response: No adverse reaction 09/26 23:09 Drug: morphine 2 mg {Note: rass 0.} Route: IVP; Site: right antecubital; 09/27 00:57 Follow up: Response: No adverse reaction; Pain is decreased; RASS: Alert and Calm (0) 09/26 23:09 Drug: Zofran (Ondansetron) 4 mg Route: IVP; Site: right antecubital; 09/27 00:56 Follow up: Response: No adverse reaction; Nausea is decreased 00:56 Drug: Cipro 400 mg Volume: 200 ml; Route: IVPB; Infused Over: 60 mins; Site: right wh antecubital; 02:13 Follow up: Response: No adverse reaction; IV Status: Completed infusion 00:56 Drug: Flagyl 500 mg Route: PO; 02:13 Follow up: Response: No adverse reaction Outcome: 00:41 Discharge ordered by . [facility] 02:13 Discharged to home ambulatory. 02:13 Condition: stable 02:13 Discharge instructions given to patient, Instructed on discharge instructions, follow up and referral plans. medication usage, POC Demonstrated understanding of instructions, follow-up care, medications, POC Prescriptions given X X5 02:13 Patient left the ED. Signatures: Dispatcher [employer] Arvind Ibarra MD MD cha Habalo, Winsy RN JOSE ALEJANDRO John Murrieta RN Claudette Dick 3 Flash Rodríguez RN RN ll1
--- NOTE | 2020-09-27 00:41 | EDPHYS ---
Physician Documentation [facility] Name: Taina Macias Age: 35 yrs Sex: Female : 1985 Arrival Date: 09/26/2020 Time: 21:30 Bed 2 Private MD: ED Physician Arvind Grijalva HPI: 09/26 22:55 This 35 yrs old Black Female presents to ER via Ambulatory with complaints of Abdominal katja Pain, Abdominal Swelling. 22:55 The patient presents with abdominal pain in the epigastric area, in the upper abdomen. katja Onset: The symptoms/episode began/occurred 1 day(s) ago. The symptoms do not radiate. Associated signs and symptoms: none. The symptoms are described as crampy. Modifying factors: The symptoms are alleviated by nothing, the symptoms are aggravated by nothing. Severity of pain: At its worst the pain was mild moderate in the emergency department the pain is unchanged. The patient has not experienced similar symptoms in the past. 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 - Social history:: Smoking status: Patient denies any tobacco usage or history of. - Family history:: not pertinent. ROS: 22:55 Constitutional: Negative for fever, chills, and weight loss, Eyes: Negative for injury, katja pain, redness, and discharge, ENT: Negative for injury, pain, and discharge, Neck: Negative for injury, pain, and swelling, Cardiovascular: Negative for chest pain, palpitations, and edema, Respiratory: Negative for shortness of breath, cough, wheezing, and pleuritic chest pain, Back: Negative for injury and pain, : Negative for injury, bleeding, discharge, and swelling, MS/Extremity: Negative for injury and deformity, Skin: Negative for injury, rash, and discoloration, Neuro: Negative for headache, weakness, numbness, tingling, and seizure, Psych: Negative for depression, anxiety, suicide ideation, homicidal ideation, and hallucinations, Allergy/Immunology: Negative for hives, rash, and allergies, Endocrine: Negative for neck swelling, polydipsia, polyuria, polyphagia, and marked weight changes, Hematologic/Lymphatic: Negative for swollen nodes, abnormal bleeding, and unusual bruising. 22:55 Abdomen/GI: Positive for abdominal pain, abdominal distension, of the right upper quadrant, left upper quadrant, right lower quadrant and left lower quadrant. Exam: 22:55 Constitutional: This is a well developed, well nourished patient who is awake, alert, katja and in no acute distress. Head/Face: Normocephalic, atraumatic. Eyes: Pupils equal round and reactive to light, extra-ocular motions intact. Lids and lashes normal. Conjunctiva and sclera are non-icteric and not injected. Cornea within normal limits. Periorbital areas with no swelling, redness, or edema. ENT: Nares patent. No nasal discharge, no septal abnormalities noted. Tympanic membranes are normal and external auditory canals are clear. Oropharynx with no redness, swelling, or masses, exudates, or evidence of obstruction, uvula midline. Mucous membranes moist. Neck: Trachea midline, no thyromegaly or masses palpated, and no cervical lymphadenopathy. Supple, full range of motion without nuchal rigidity, or vertebral point tenderness. No Meningismus. Chest/axilla: Normal chest wall appearance and motion. Nontender with no deformity. No lesions are appreciated. Cardiovascular: Regular rate and rhythm with a normal S1 and S2. No gallops, murmurs, or rubs. Normal PMI, no JVD. No pulse deficits. Respiratory: Lungs have equal breath sounds bilaterally, clear to auscultation and percussion. No rales, rhonchi or wheezes noted. No increased work of breathing, no retractions or nasal flaring. Back: No spinal tenderness. No costovertebral tenderness. Full range of motion. Female : Normal external genitalia. Skin: Warm, dry with normal turgor. Normal color with no rashes, no lesions, and no evidence of cellulitis. MS/ Extremity: Pulses equal, no cyanosis. Neurovascular intact. Full, normal range of motion. Neuro: Awake and alert, GCS 15, oriented to person, place, time, and situation. Cranial nerves II-XII grossly intact. Motor strength 5/5 in all extremities. Sensory grossly intact. Cerebellar exam normal. Normal gait. Psych: Awake, alert, with orientation to person, place and time. Behavior, mood, and affect are within normal limits. 22:55 Abdomen/GI: Inspection: distension, Bowel sounds: hyperactive, Palpation: mild abdominal tenderness, in all quadrants, Liver: no appreciated palpable abnormalities, Hernia: not appreciated. 22:55 Musculoskeletal/extremity: DVT Exam: No signs of deep vein thrombosis. no pain, no swelling, no tenderness, negative Homans' sign noted on exam, no appreciated bluish discoloration, no erythema, no increased warmth. Vital Signs: 21:36 Pulse 101; Resp 18; Temp 98.0; Pulse Ox 100% on R/A; Weight 94.8 kg; Height 5 ft. 6 in. ll1 (167.64 cm); Pain 8/10; 21:47 BP 104 / 78; ll1 23:00 BP 103 / 71; Pulse 81; Resp 18; Pulse Ox 100% on R/A; rv 09/27 00:06 BP 116 / 60; Pulse 73; Resp 17; Pulse Ox 100% on R/A; rv 02:00 BP 110 / 68; Pulse 74; Resp 18; Pulse Ox 99% on R/A; wh 09/26 21:36 Body Mass Index 33.73 (94.80 kg, 167.64 cm) ll1 MDM: 09/26 22:25 Patient medically screened. katja 22:57 Differential diagnosis: bowel obstruction, diverticulitis, non-specific abd pain, katja pancreatitis, Peptic Ulcer Disease, Peritonitis, Pyelonephritis, urinary tract infection. Data reviewed: vital signs, nurses notes, lab test result(s), radiologic studies, CT scan, plain films. 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 Test interpretation: by ED physician or midlevel provider:. Counseling: I had a detailed discussion with the patient and/or guardian regarding: the historical points, exam findings, and any diagnostic results supporting the discharge/admit diagnosis, lab results. 09/26 21:57 Order name: Basic Metabolic Panel rv 09/26 21:57 Order name: CBC with Diff rv 09/26 21:57 Order name: Hepatic Function rv 09/26 21:57 Order name: Lipase rv 09/26 21:58 Order name: Basic Metabolic Panel; Complete Time: 22:54 EDMS 09/26 21:58 Order name: CBC with Automated Diff; Complete Time: 22:34 EDMS 09/26 21:58 Order name: Liver (Hepatic) Function; Complete Time: 22:54 EDMS 09/26 21:58 Order name: Lipase; Complete Time: 22:54 EDUT 09/26 22:36 Order name: CT Abd/Pelvis - IV Contrast Only [facility] 09/26 23:56 Order name: Urine Dipstick--Ancillary (enter results); Complete Time: 00:38 mw 09/26 23:56 Order name: Urine --Ancillary (enter results); Complete Time: 00:38 mw2 09/26 21:57 Order name: IV Saline Lock; Complete Time: 21:58 09/26 21:57 Order name: Labs collected and sent; Complete Time: 21:59 09/26 21:58 Order name: Urine Dipstick-Ancillary (obtain specimen); Complete Time: 23:52 09/26 22:36 Order name: Urine Test (obtain specimen); Complete Time: 23:52 [facility] Administered Medications: 22:00 Drug: NS 0.9% 1000 ml Route: IV; Rate: 1 bolus; Site: right antecubital; 09/27 00:57 Follow up: Response: No adverse reaction; IV Status: Completed infusion 09/26 23:09 Drug: Pepcid 20 mg Route: IVP; Site: right antecubital; 09/27 00:57 Follow up: Response: No adverse reaction 09/26 23:09 Drug: morphine 2 mg {Note: rass 0.} Route: IVP; Site: right antecubital; 09/27 00:57 Follow up: Response: No adverse reaction; Pain is decreased; RASS: Alert and Calm (0) 09/26 23:09 Drug: Zofran (Ondansetron) 4 mg Route: IVP; Site: right antecubital; 09/27 00:56 Follow up: Response: No adverse reaction; Nausea is decreased 00:56 Drug: Cipro 400 mg Volume: 200 ml; Route: IVPB; Infused Over: 60 mins; Site: right antecubital; 02:13 Follow up: Response: No adverse reaction; IV Status: Completed infusion 00:56 Drug: Flagyl 500 mg Route: PO; 02:13 Follow up: Response: No adverse reaction Disposition: 09/27/20 00:41 Discharged to Home. Impression: Abdominal tenderness - acute nonspecific enteritis, Nausea and vomiting. - Condition is Stable. - Discharge Instructions: Abdominal Pain, Adult, Abdominal Pain, Adult, [id number]. - Prescriptions for Bentyl 20 mg Oral Tablet - take 1 tablet by ORAL route every 6 hours As needed; 20 tablet. Pepcid 20 mg Oral Tablet - take 1 tablet by ORAL route every 12 hours for 10 days; 20 tablet. Zofran 4 mg Oral Tablet - take 1 tablet by ORAL route every 12 hours As needed; 20 tablet. Flagyl 500 mg Oral Tablet - take 1 tablet by ORAL route every 8 hours for 10 days; 21 tablet. Cipro 500 mg Oral Tablet - take 1 tablet by ORAL route every 12 hours for 7 days; 14 tablet. - Medication Reconciliation Form, Thank You Letter, Antibiotic Education, Prescription Opioid Use form. - Follow up: Private Physician; When: 2 - 3 days; Reason: Recheck today's complaints, Continuance of care, Re-evaluation by your physician. Follow up: Sunshine Mayes; When: 2 - 3 days; Reason: Recheck today's complaints, Re-evaluation by your physician. - Problem is new. - Symptoms have improved. Signatures: Dispatcher [employer] EDMS Arvind Grijalva MD MD cha Habalo, Winsy, RN RN John Murrieta RN Flash Dick RN RN ll1 Corrections: (The following items were deleted from the chart) 00:44 00:41 09/27/2020 00:41 Discharged to Home. Impression: Abdominal tenderness - acute katja nonspecific enteritis. Condition is Stable. Discharge Instructions: Abdominal Pain, Adult, Abdominal Pain, Adult, [id number]. Prescriptions for Bentyl 20 mg Oral Tablet - take 1 tablet by ORAL route every 6 hours As needed; 20 tablet, Pepcid 20 mg Oral Tablet - take 1 tablet by ORAL route every 12 hours for 10 days; 20 tablet, Zofran 4 mg Oral Tablet - take 1 tablet by ORAL route every 12 hours As needed; 20 tablet. and Forms are Medication Reconciliation Form, Thank You Letter, Antibiotic Education, Prescription Opioid Use. Follow up: Private Physician; When: 2 - 3 days; Reason: Recheck today's complaints, Continuance of care, Re-evaluation by your physician. Follow up: Sunshine Mayes; When: 2 - 3 days; Reason: Recheck today's complaints, Re-evaluation by your physician. Problem is new. Symptoms have improved. [facility] 02:13 00:44 09/27/2020 00:41 Discharged to Home. Impression: Abdominal tenderness - acute wh nonspecific enteritis; Nausea and vomiting. Condition is Stable. Discharge Instructions: Abdominal Pain, Adult, Abdominal Pain, Adult, [id number]. Prescriptions for Bentyl 20 mg Oral Tablet - take 1 tablet by ORAL route every 6 hours As needed; 20 tablet, Pepcid 20 mg Oral Tablet - take 1 tablet by ORAL route every 12 hours for 10 days; 20 tablet, Zofran 4 mg Oral Tablet - take 1 tablet by ORAL route every 12 hours As needed; 20 tablet, Flagyl 500 mg Oral Tablet - take 1 tablet by ORAL route every 8 hours for 10 days; 21 tablet, Cipro 500 mg Oral Tablet - take 1 tablet by ORAL route every 12 hours for 7 days; 14 tablet. and Forms are Medication Reconciliation Form, Thank You Letter, Antibiotic Education, Prescription Opioid Use. Follow up: Private Physician; When: 2 - 3 days; Reason: Recheck today's complaints, Continuance of care, Re-evaluation by your physician. Follow up: Sunshine Mayes; When: 2 - 3 days; Reason: Recheck today's complaints, Re-evaluation by your physician. Problem is new. Symptoms have improved. [facility]
[2020-09-27] MEDS ORDERED: CIPROFLOXACIN 400mg IV 400 MG/200 ML BAG IV ONE (01:08)
[2020-09-27] MEDS ORDERED: metroNIDAZOLE 500 MG TABLET ONE (01:08)
[2020-09-27 02:33] VITALS: TEMP 98
[2020-09-27 02:48] VITALS: BP 110/68; O2SAT 99
--- NOTE | 2020-09-27 12:17 | RAD REPORT ---
EXAM DESCRIPTION: CT - Abdomen Pelvis W Contrast - 09/27/2020 6:11 am CLINICAL HISTORY: ABD PAIN COMPARISON: None Available. TECHNIQUE: CT of the abdomen and pelvis performed following IV administration of iodinated contras t.. FINDINGS: Lung Bases: The visualized lung bases are clear. Bones: No destructive bone lesions identified. Abdomen: Liver: The liver has normal size and density. No intrahepatic biliary dilatation. Gallbladder: Prior cholecystectomy. Spleen, Pancreas, and Adrenal Glands: The spleen, pancreas, and adrenal glands are unremarkable. Kidneys: No hydronephrosis or obstructing calculus. Vasculature: The aorta and IVC have normal caliber and position. The portal vein is patent. The pro ximal visceral and renal arteries are patent. Stomach: Postoperative change of the stomach. Other: No free intraperitoneal air. No free fluid or lymphadenopathy. Nonspecific fat stranding w ithin the dorsal subcutaneous soft tissues. Pelvis: Bladder: Mild wall thickening of the urinary bladder. Bowel: Stool and fluid throughout a mildly prominent colon. Mildly prominent loops of small bowel w ith small bowel wall thickening. No evidence of mechanical obstruction. Appendix: Normal appendix. Pelvis: Uterus is not enlarged. IMPRESSION: 1. Findings compatible with acute nonspecific enteritis. 2. Fluid filled colon may indicate diarrheal illness. 3. Mild wall thickening of the urinary bladder. This may be related to under distention however cysti tis could produce this appearance. This exam was performed according to our departmental dose-optimization program, which includes autom ated exposure control, adjustment of the mA and/or kV according to patient size and/or use of iterati ve reconstruction technique. 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 The interpreting radiologist is fully responsible for the content of the report.
== END 2020-09-27 02:13 | disposition home or self-care (01) ==
LOC: ER 21:29
DX: K52.9 Noninfective gastroenteritis and colitis, unspecified (principal); R11.2 Nausea with vomiting, unspecified
CPT/HCPCS: 96365; 96361; 85025; 80048; 36415; 81025; 80076; 81003; 83690; 74177; 96375; 99284; Q9967; J2270; J7030; J2405; J0744